=== PATIENT | male | born 1980 | race Two or more races ===

== ENCOUNTER 2018-11-29 09:13 | Emergency (ER) | payer OTHER ==
[~2018-11-29] VITALS: Ht 177.8 cm; Wt 72.7 kg
[2018-11-29 09:18] VITALS: BP 110/56
[2018-11-29] MEDS ORDERED: CELE-193 PO (09:52)
== END 2018-11-29 09:55 | disposition home or self-care (01) ==
LOC: ER 09:14
DX: M25.561 Pain in right knee (principal); M79.89 Other specified soft tissue disorders; X58.XXXA Exposure to other specified factors, initial encounter; Y93.66 Activity, soccer; Y92.89 Other specified places as the place of occurrence of the external cause; Y99.8 Other external cause status
CPT/HCPCS: 73564; 99283